=== PATIENT | male | born 1965 | race Caucasian/White ===

== ENCOUNTER 2024-05-25 07:10 | Day surgery (SDC) | payer BC, SELFPAY ==
[2024-05-21 09:39] VITALS: BMI 51.7
[2024-05-21 12:12] LABS: Basophils % (Auto) 1 % (0-2.5); Eosinophils # (Auto) 0.2 Thou/mm3 (0.0-0.5); Eosinophils % (Auto) 2 % (0-10); Hematocrit 29.4 % (41.0-53.0); Hemoglobin 8.9 g/dL (13.5-16.0); Immature Granulocytes % (Auto) 0 % (0-0); Immature Granulocytes Auto 0.02 Thou/mm3 (0.00-0.00); Lymphocytes # (Auto) 0.8 Thou/mm3 (1.0-4.8); Lymphocytes % (Auto) 11 % (10-50); Mean Corpuscular HGB Conc 30.3 g/dl (31.0-37.0); Mean Corpuscular Hemoglobin 26.7 pg (25.0-35.0); Mean Corpuscular Volume 88 fL (80-100); Monocytes # (Auto) 0.6 Thou/mm3 (0.0-0.8); Monocytes % (Auto) 8 % (0-12); Neutrophils # (Auto) 5.8 Thou/mm3 (1.8-7.7); Neutrophils % (Auto) 78 % (37-80); Nucleated Red Blood Cell % 0 /100 WBC (0); Platelet Count 248 Thou/mm3 (140-440); RDW Standard Deviation 49.1 fL (35.1-43.9); Red Blood Count 3.33 Miln/mm3 (4.50-5.90); White Blood Count 7.4 Thou/mm3 (3.8-10.6)
[2024-05-21 12:26] LABS: Alanine Aminotransferase 12 U/L (10-49); Albumin, Serum 3.9 gm/dL (3.5-5.0); Albumin/Globulin Ratio 1.4 (1.2-2.2); Alkaline Phosphatase 146 U/L (46-116); Anion Gap 7 (7-16); Aspartate Amino Transferase < 8 U/L (0-34); BUN/Creatinine Ratio 11 Ratio (12-20); Bilirubin,Total 0.6 mg/dL (0.3-1.2); Blood Urea Nitrogen 75 mg/dL (9-23); Calcium 9.2 mg/dL (8.3-10.6); Calcium (Corrected) 9.3 mg/dL (8.5-10.1); Carbon Dioxide 23.1 mMol/L (20.0-31.0); Chloride 104 mMol/L (98-107); Creatinine (Component) 6.7 mg/dL (0.6-1.3); Estimated Creatinine Clearance 17.1 mL/min (>60); Globulin 2.8 gm/dL (2.3-3.5); Glucose 256 mg/dL (74-106); Osmolality,Calculated 299 (275-295); Potassium 5.2 mMol/L (3.4-5.1); Sodium 134 mMol/L (136-145); Total Protein 6.7 gm/dL (5.7-8.2); eGFR 9 See Note
--- NOTE | 2024-05-21 13:53 | SUR.PREOP ---
Cardiac records reviewed with Dr Trinidad.
[2024-05-25] VITALS (9 sets, daily range): BP systolic 131–171; BP diastolic 78–96; PULSE 60–65; RESP 18–20; TEMP 36.3–36.6; O2SAT 95–100; BMI 49.6
--- NOTE | 2024-05-25 07:45 | CHAP ---
Prayed with patient concerning upcoming procedure.
[2024-05-25 08:21] LABS: Potassium 5.1 mMol/L (3.4-5.1)
[2024-05-25] MEDS: SODIUM CHLORIDE 0.9% 500 ML 500 ML 20 ML IV (08:26)
[2024-05-25] MEDS: ALBUTEROL RT 2.5 MG/3 ML NEBU INH (09:42)
--- NOTE | 2024-05-25 10:54 | ESOP_ITS ---
Date of Procedure 05/25/24 Pre Op Diagnosis Chronic kidney disease stage V Post Op Diagnosis Chronic kidney disease stage V Procedure Laparoscopic assisted placement of peritoneal dialysis catheter with omentopexy Findings There was no evidence of pelvic or abdominal adhesions. Large amount of omentum in the pelvis noted Procedure Description Patient brought into the operating room in supine position. After administration of general endotracheal anesthesia, patient's abdomen was prepped and draped in standard surgical manner. An approximately 5 mm incision was made in right upper quadrant and Veress needle was inserted. Pneumoperitoneum was obtained up to 15 mmHg and the Veress needle was removed. A 5 mm trocar was placed and laparoscopic camera was inserted. Under direct visualization a laparoscopic camera a 5 mm trocar was placed in left side of the abdomen, this would be used is the exit site of the catheter. The abdomen was inspected and there were no evidence of pelvic or abdominal adhesions. Patient was noted to have large amount of omentum in the pelvis. The omentum was retracted cephalad into the left upper quadrant and omentopexy was performed using Endo closure device using 0 Ethibond. An approximately 3 cm incision was made to the left of the umbilicus and dissection was carried subcutaneous tissue. A 10 mm trocar was placed through this incision and the peritoneal dialysis catheter was placed through this trocar and advanced into patient's pelvis, the trocar was then removed. The curved end of the catheter was positioned in patient's pelvis. Using an Endo closure device a suture was placed around the catheter in suprapubic region to hold the catheter in place and prevent potential displac ement of the catheter in the future. The proximal cuff of the catheter was placed posterior to anterior abdominal fascia in a pursestring suture using 0 Ethibond placed around the catheter to hold the catheter in place and prevent leakage of fluid around the catheter site. Using the tunneling device a tunnel was created in subcutaneous soft tissue and the catheter was placed in soft tissue tunnel and brought out of left abdominal trocar site. The distal cuff was placed in soft tissue. The catheter was flushed with heparinized saline, fluid was being flushed and aspirated without difficulty. Pneumoperitoneum was evacuated and trocars removed. The incisions closed 4-0 Monocryl in subcuticular fashion. Instruments, needles and sponge counts were reported to be correct ?2. Patient tolerated the procedure well, was extubated, breathing spontaneously and without difficulty and was transferred to postanesthesia care in stable condition. Anesthesia GETA and local Pathology / specimen None Estimated Blood Loss 5 Condition Stable Disposition PACU Surgeon Vanesa Gilbert MD Surgical Staff Operation Date: 05/25/24 09:15 Case Staff Anesthesiologist: Sammy Cooney RN First Assistant: Suellen Cordova
--- NOTE | 2024-05-25 11:00 | SUR.PHASEI ---
Pt arrived to PACU via gurney drowsy but arouses to verbal stimuli, breathing unlabored, dressing to abdomen clean, dry, and intact, report from Leonor CHUNG and Dr Cooney
--- NOTE | 2024-05-25 12:17 | SUR.PHASEII ---
pt awake, alert, able to follow commands, breathing unlabored, dressing to abdomen clean, dry, and intact, discharge instructions given with spouse present, pt able to ambulate with steady gait to wheelchair, pt discharged via wheelchair with all belongings and copies of discharge paperwork.
== END 2024-05-25 12:17 | disposition home or self-care (01) ==
PROVIDERS: Anesthesiology; PCP Family Medicine; Referring Provider Surgery; Visit Provider Surgery
PROC: 0WHG43Z Insertion of Infusion Device into Peritoneal Cavity, Percutaneous Endoscopic Approach (ICD-10-PCS; CPT 49324; principal; 2024-05-25 09:00)
DX: E11.22 Type 2 diabetes mellitus with diabetic chronic kidney disease (principal); I12.0 Hypertensive chronic kidney disease with stage 5 chronic kidney disease or end stage renal disease; Z99.2 Dependence on renal dialysis; N18.5 Chronic kidney disease, stage 5; E78.00 Pure hypercholesterolemia, unspecified
CPT/HCPCS: 49324; 36415; 80053; 84132; 85025; A4649; C1750; J0690; J1100; J1643; J2250; J2405; J2704; J3010; J3490; J7040; A9270; J1644